=== PATIENT | female | born 1985 | race Caucasian/White ===

== ENCOUNTER 2017-01-26 14:32 | Emergency (ER) | payer MEDICARE, OTHER ==
[2017-01-26 14:46] VITALS: BP 114/61; PULSE 96; RESP 18; TEMP 97.9
--- NOTE | 2017-01-26 15:19 | ED ---
Skin/Abscess/FB HPI - General Chief complaint: Skin/Abscess/Foreign Body Stated complaint: rash Time Seen by Provider: 01/26/17 14:47 Source: patient Mode of arrival: ambulatory Limitations: no limitations - History of Present Illness Initial comments: 31-year-old female patient percent to emergency department today for evaluation of multiple skin lesions. Patient states that she was diagnosed with ringworm a month and a half ago, has been applying antifungal cream given to her by her primary care physician for the last month and a half without any relief of symptoms. Patient states that the first lesion was on her right lower leg, and then she started developing lesions over the rest of her body. She states the lesions are very itchy. Started as small red bumps and then spit out to turn into circular scaly lesions. Patient states that she did have a tubal ligation one month ago, she states the incision is healing well however she believes she is now getting ringworm to the area surrounding the incision. Patient denies any recent fever, chills, shortness breath, chest pain, abdominal pain, nausea/ vomiting/diarrhea, back pain, numbness, tingling, hematuria, headache, or visual changes, or any other complaints. - Related Data Previous Rx's Medication Instructions Recorded Clotrimazole Cream [Lotrimin Cream] 1 applic TOPICAL BID #30 gm 01/26/17 Terbinafine [LamISIL] 250 mg PO DAILY #14 tablet 01/26/17 Allergies Allergy/AdvReac Type Severity Reaction Status Date / Time aspirin Allergy Unknown Verified 01/26/17 14:46 ibuprofen [From Motrin] Allergy Unknown Verified 01/26/17 14:46 latex Allergy Unknown Verified 01/26/17 14:46 Penicillins Allergy Unknown Verified 01/26/17 14:46 Review of Systems ROS Statement: Those systems with pertinent positive or pertinent negative responses have been documented in the HPI. ROS Other: All systems not noted in ROS Statement are negative. Past Medical History Past Medical History: No Reported History History of Any Multi-Drug Resistant Organisms: None Reported Past Surgical History: Tubal Ligation Additional Past Surgical History / Comment(s): reval of tubial ligation Past Psychological History: Anxiety, Bipolar, Depression Smoking Status: Former smoker Past Alcohol Use History: None Reported Past Drug Use History: None Reported General Exam Limitations: no limitations General appearance: alert, in no apparent distress Head exam: Present: atraumatic, normocephalic, normal inspection Eye exam: Present: normal appearance, PERRL, EOMI. Absent: scleral icterus, conjunctival injection, periorbital swelling ENT exam: Present: normal exam, mucous membranes moist Neck exam: Present: normal inspection. Absent: tenderness, meningismus, lymphadenopathy Respiratory exam: Present: normal lung sounds bilaterally. Absent: respiratory distress, wheezes, rales, rhonchi, stridor Cardiovascular Exam: Present: regular rate, normal rhythm, normal heart sounds. Absent: systolic murmur, diastolic murmur, rubs, gallop, clicks GI/Abdominal exam: Present: soft, normal bowel sounds, other (Suprapubic horizontal healed incision, well approximated, no dehiscence or drainage noted. Erythematous annular scaly lesion noted to the left side of the incision today.). Absent: distended, tenderness, guarding, rebound, rigid Extremities exam: Present: normal inspection, full ROM, normal capillary refill. Absent: tenderness, pedal edema, joint swelling, calf tenderness Back exam: Present: normal inspection Neurological exam: Present: alert, oriented X3, CN II-XII intact Psychiatric exam: Present: normal affect, normal mood Skin exam: Present: warm, dry, intact, normal color, rash (Medial aspect of the right lower leg reveals a small annular scaly lesion. Bilateral arms exhibit a few scattered erythematous papules.) Course Vital Signs 01/26/17 14:43 Temperature 97.9 F Pulse Rate 96 Respiratory 18 Rate Blood Pressure 114/61 O2 Sat by Pulse 98 Oximetry Medical Decision Making - Medical Decision Making 31-year-old female patient presented to emergency department for evaluation of ringworm infection. Physical exam did reveal a rash that is consistent with ringworm and possible early ringworm lesions. Patient was given a prescription for clotrimazole cream as well as Lamisil oral since she had previously failed topical treatment. Patient was also given a referral to dermatology for recheck. Patient instructed to follow with her primary care physician for recheck in 1-2 days. Instructed to return immediately for any new, worsening, or concerning symptoms. Patient verbalized understanding and agreed to this plan. Disposition Clinical Impression: Tinea corporis Disposition: HOME SELF-CARE Condition: Good Instructions: Tinea Corporis (ED) Additional Instructions: Use topical antifungal as well as oral antifungal. Follow-up with dermatology. Return immediately for any new, worsening, or concerning symptoms. Prescriptions: Clotrimazole Cream [Lotrimin Cream] 1 applic TOPICAL BID #30 gm Terbinafine [LamISIL] 250 mg PO DAILY #14 tablet Referrals: Radha Ramos MD [Primary Care Provider] - 1-2 days Mathieu Gore MD [STAFF PHYSICIAN] - 1-2 days Time of Disposition: 15:19
== END 2017-01-26 15:32 | disposition home or self-care (01) ==
LOC: EC 14:32
DX: B35.4 Tinea corporis (principal); Z87.891 Personal history of nicotine dependence; Z88.0 Allergy status to penicillin; Z88.6 Allergy status to analgesic agent; Z91.040 Latex allergy status
CPT/HCPCS: 99282